=== PATIENT | male | born 1975 | race Native Hawaiian/Other Pacific Islander ===

== ENCOUNTER 2016-08-26 20:58 | Emergency (ER) | payer OTHER ==
[~2016-08-26] VITALS: Ht 185.4 cm; Wt 108.0 kg
[2016-08-26] MEDS ORDERED: HYDR10TA47 PO (21:24)
[2016-08-26 22:01] LABS: PLATELET COUNT 227 K/uL (142-355)
[2016-08-26 22:51] LABS: POTASSIUM 3.9 mmol/L (3.6-5.2); SODIUM 137 mmol/L (136-145)
[2016-08-27 00:05] VITALS: BP 128/74; TEMP 98.5
== END 2016-08-27 00:14 | disposition home or self-care (01) ==
LOC: ED 20:58
DX: R10.84 Generalized abdominal pain (principal)
CPT/HCPCS: 36415; 80053; 81000; 85027; 96374; 99283; J1885; Q9963

== ENCOUNTER 2018-09-03 20:12 | Outpatient (CLI) | payer OTHER ==
[~2018-09-03 20:12] MED LIST: HYDR10TA47 PO
== END 2018-09-03 20:15 | disposition short-term general hospital (02) ==
LOC: AMB 20:12
DX: M54.89 Other dorsalgia (principal); M79.605 Pain in left leg; M79.604 Pain in right leg; M54.2 Cervicalgia; V49.9XXA Car occupant (driver) (passenger) injured in unspecified traffic accident, initial encounter; Y93.89 Activity, other specified; Y92.89 Other specified places as the place of occurrence of the external cause
CPT/HCPCS: A0425; A0429

== ENCOUNTER 2018-09-03 20:15 | Emergency (ER) | payer OTHER ==
[~2018-09-03] VITALS: Ht 185.4 cm; Wt 108.9 kg
[2018-09-03 20:15] VITALS: TEMP 98.9
[2018-09-03 23:03] VITALS: BP 138/72
== END 2018-09-03 23:12 | disposition home or self-care (01) ==
LOC: ED 20:22
DX: M43.6 Torticollis (principal); M54.2 Cervicalgia; M54.5 Low back pain; V49.40XA Driver injured in collision with unspecified motor vehicles in traffic accident, initial encounter
CPT/HCPCS: 96372; 99283; J1885

== ENCOUNTER 2020-03-10 04:25 | Emergency (ER) | payer OTHER ==
[~2020-03-10] VITALS: Ht 185.4 cm; Wt 104.3 kg
[2020-03-10 05:50] VITALS: BP 133/74; TEMP 99.2
== END 2020-03-10 05:50 | disposition home or self-care (01) ==
LOC: ED 04:25
DX: S39.012A Strain of muscle, fascia and tendon of lower back, initial encounter (principal); G89.29 Other chronic pain; M54.5 Low back pain
CPT/HCPCS: 96372; 99283; J1885

== ENCOUNTER 2023-03-20 19:13 | Emergency (ER) | payer OTHER ==
[~2023-03-20] VITALS: Ht 182.9 cm; Wt 104.3 kg
[2023-03-20 19:25] VITALS: TEMP 97.8
[2023-03-20 19:40] VITALS: BP 123/72
== END 2023-03-20 19:40 | disposition home or self-care (01) ==
LOC: ED 19:13
DX: Z48.00 Encounter for change or removal of nonsurgical wound dressing (principal); L02.424 Furuncle of left upper limb
CPT/HCPCS: 99282

== ENCOUNTER 2023-08-22 15:33 | Emergency (ER) | payer BC ==
[~2023-08-22] VITALS: Ht 182.9 cm; Wt 117.9 kg
[2023-08-22 16:50] VITALS: TEMP 98.8
[2023-08-22] MEDS ORDERED: COLCHICINE 0.6 MG TAB PO ONE ×4 (18:40→20:18)
[2023-08-22] MEDS ORDERED: DEXAMETHASONE SODIUM PHOSPHATE 4 MG INJ IM ONE (18:42)
[2023-08-22] MEDS ORDERED: DEXAMETHASONE SODIUM PHOSPHATE 4 MG INJ ONE (18:46)
[2023-08-22 20:37] VITALS: BP 131/74
== END 2023-08-22 20:34 | disposition home or self-care (01) ==
LOC: ED 15:33
DX: M79.671 Pain in right foot (principal); R20.2 Paresthesia of skin; M10.9 Gout, unspecified
CPT/HCPCS: 36415; 84550; 96372; 99283; J1100